=== PATIENT | male | born 2000 | race Caucasian/White ===

== ENCOUNTER 2019-03-30 17:03 | Emergency (ER) | payer OTHER, MEDICAID ==
[~2019-03-30] VITALS: Ht 175.3 cm; Wt 59.9 kg
[2019-03-30 17:24] VITALS: BP 137/86
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
[2019-03-30] MEDS ORDERED: LIDOCAINE 1%-EPI 1:100,000 20 ML VIAL ONE (18:46)
== END 2019-03-30 19:47 | disposition home or self-care (01) ==
LOC: ER 17:04
DX: Q18.1 Preauricular sinus and cyst (principal)
CPT/HCPCS: 69000; 99284; A6403; J3490